=== PATIENT | male | born 1985 | race African-American/Black ===

== ENCOUNTER → 2023-07-28 | Outpatient (CLI) | payer MEDICARE, OTHER ==
--- NOTE | 2023-08-10 00:49 | MR ---
EXAM: MR wrist LT wo con DATE OF EXAM: 07/28/2023 COMPARISON: None available HISTORY: Left wrist pain, abnormality seen on xray, distal ulna. TECHNIQUE: Multiplanar, multisequence images of the left wrist were acquired without contrast. FINDINGS: BONES/JOINTS: Minimally displaced fracture of the ulnar styloid demonstrate no significant bone marro w edema. Degenerative subchondral cystic change within the lunate central and radial aspect. Normal a lignment. No ulnar variance. Distal radioulnar joint is normal. No joint effusion. LIGAMENTS: Scapholunate and lunotriquetral ligaments are normal. Extrinsic carpal ligaments are maricarmen l. Triangular fibrocartilaginous complex is normal. TENDONS: Flexor tendons are normal. Extensor tendons are normal. SOFT TISSUES: Carpal tunnel is normal. Guyon's canal is normal. No bursal distention. No fluid collec tion. NEUROVASCULAR: The median nerve is normal in size, signal, and location. The ulnar nerve is normal in size, signal, and location. Vascular structures are normal OTHER: Normal. IMPRESSION: 1. Age-indeterminate ulnar styloid fracture. 2. Subchondral cystic changes isolated to the lunate, distribution of which is suggestive but equivoc al for Ke[place] disease, differential also includes degenerative joint disease.
== END | disposition home or self-care (01) ==
LOC: RADMRIMAIN 15:24
PROVIDERS: ATTEND Family Medicine
DX: R93.89 Abnormal findings on diagnostic imaging of other specified body structures (principal)

== ENCOUNTER → 2023-12-30 | Outpatient (CLI) | payer MEDICARE, OTHER ==
--- NOTE | 2023-12-30 19:02 | CT ---
EXAMINATION TYPE: CT ChestAbdPelvis w con CT DLP: 1089.80 mGycm, Automated exposure control for dose reduction was used. DATE OF EXAM: 12/30/2023 5:06 PM COMPARISON: None. CLINICAL INDICATION:Male, 38 years old with history of R63.4 ABNORMAL WEIGHT LOSS R63.0 ANOREXIA F43. 9 RE; PHH, Abnormal weight loss, anorexia. Technique: CT ChestAbdPelvis w con; Multiple axial images were obtained. Two-dimensional coronal and sagittal reconstructions were obtained. Contrast used:100 mL of Isovue 300 with IV Contrast, Oral contrast used: with Oral Contrast Findings: CHEST: LUNGS/ PLEURA: No focal consolidation, pneumothorax or pleural effusion. AIRWAY: Patent and unremarkable. HEART: Size within normal limits. MEDIASTINUM: No gross evidence of adenopathy. VASCULATURE: No aortic aneurysm. MUSCULOSKELETAL: No acute osseous abnormalities. SOFT TISSUES/LYMPH NODES: Unremarkable. LOWER NECK: No significant findings. ABDOMEN: ABDOMEN LIVER: Focal fatty infiltration adjacent to the falciform ligament in segment IVb GALLBLADDER AND BILE DUCTS: Gallbladder is surgically absent. PANCREAS: Unremarkable. SPLEEN: Unremarkable. ADRENAL GLANDS: Unremarkable. KIDNEYS AND URETERS: No evidence of hydronephrosis or renal calculus. The ureters are unremarkable. PELVIS BLADDER: Unremarkable REPRODUCTIVE: Unremarkable. ABDOMEN & PELVIS STOMACH AND BOWEL: No evidence of bowel obstruction. The cecum demonstrates a masslike thickening unc lear if this is artifact due to nondistention. There is best appreciated on series 8 image 34. PERITONEUM: No evidence of pneumoperitoneum or free fluid. VASCULATURE: No evidence of aortic aneurysm. MUSCULOSKELETAL: No acute osseous abnormalities LYMPH NODES: No gross evidence for lymphadenopathy. Prominent nonenlarged lymph nodes are seen in the right lower quadrant mesentery. SOFT TISSUE/ABDOMINAL WALL: Unremarkable IMPRESSION: Masslike wall thickening of the cecum possibly due to underdistention. Recommend direct visualization to rule out malignancy. Correlate with family history for Frias syndrome.
== END | disposition home or self-care (01) ==
LOC: RADCTMAIN 15:04
PROVIDERS: ATTEND Family Medicine
DX: R63.4 Abnormal weight loss (principal); R63.0 Anorexia; F43.9 Reaction to severe stress, unspecified
CPT/HCPCS: 71260; 74177; Q9967

== ENCOUNTER 2024-01-31 09:19 | Day surgery (SDC) | payer MEDICARE, OTHER ==
[2024-01-31] MEDS ORDERED: LACTATED RINGERS 1,000 ML BAG ONE (12:00)
[2024-01-31] MEDS ORDERED: PROPOFOL 10 MG/ML 20 ML VIAL IV ONE (12:26)
--- NOTE | 2024-02-24 07:02 | P.PCN ---
Date of Procedure: 01/31/24 Procedure(s) Performed: This is an addendum to the procedure that was performed on 01/31/2024 Procedure performed colonoscopy Procedure: The colonoscopy was inserted rectum and gradually advanced into the cecum and careful examination was performed as the scope was gradually being withdrawn
== END 2024-01-31 13:11 | disposition home or self-care (01) ==
LOC: ORWHC2ENDO 09:19
PROVIDERS: ATTEND Internal Medicine Gastroenterology
DX: R93.5 Abnormal findings on diagnostic imaging of other abdominal regions, including retroperitoneum
CPT/HCPCS: 45378

== ENCOUNTER 2024-09-11 09:04 | Day surgery (SDC) | payer MEDICARE, OTHER ==
[2024-09-07 16:04] VITALS: BMI 29.9
[2024-09-11 09:43] VITALS: RESP 16; TEMP 98.7
[2024-09-11] MEDS: LACTATED RINGERS 1,000 ML IV SCH (09:51)
[2024-09-11] MEDS: IV FLUID CONTINUATION 1,000 ML IV ONE (09:52)
[2024-09-11] MEDS ORDERED: PROPOFOL 10 MG/ML 20 ML VIAL IV ONE (10:14)
--- NOTE | 2024-09-11 10:34 | P.PCN ---
Date of Procedure: 09/11/24 Procedure(s) Performed: BRIEF HISTORY: Patient is a 38-year-old, pleasant, -Citizen Of [place] male with an upper endoscopies upon evaluation of progressive esophagus 30 pounds in the last 6 months duration.. PROCEDURE PERFORMED: Esophagogastroduodenoscopy with biopsy. PREOPERATIVE DIAGNOSIS: Progressive weight loss. IV sedation per anesthesia. PROCEDURE: After informed consent was obtained, the patient was brought into the endoscopy unit. IV sedation was administered by Anesthesia under continuous monitoring. Initially the Olympus GIF-140 video endoscope was inserted into the mouth. Esophagus intubated without any difficulty. It was gradually advanced into the stomach and duodenum and carefully examined. The bulb and the second part of the duodenum appeared normal. The scope at this time was withdrawn to the stomach, adequately insufflated with air, and upon careful examination, mucosa of the antrum and mild gastritis and biopsies were done from this area. Mucosa of the, body, cardia and the fundus appeared normal. The scope was then withdrawn into the esophagus. Small hiatal hernia noted. The GE junction was located at 39 cm from the incisors. The esophagus appeared normal. There were no erosions or ulcerations seen and the patient tolerated the procedure well. IMPRESSION: 1. Mild antral gastritis. 2. Small hiatal hernia. RECOMMENDATIONS: The findings of this examination were discussed with the patient as well as his family. He was advised to follow-up with the biopsy results. Follow-up in the office in 2 to 3 weeks..
[2024-09-11 11:11] VITALS: BP 136/78; PULSE 78
== END 2024-09-11 11:17 | disposition home or self-care (01) ==
LOC: ORWHC2ENDO 09:04
PROVIDERS: ATTEND Internal Medicine Gastroenterology
DX: K29.50 Unspecified chronic gastritis without bleeding (principal); K44.9 Diaphragmatic hernia without obstruction or gangrene; R63.4 Abnormal weight loss
CPT/HCPCS: 43239; J2704; 88305